=== PATIENT | female | born 1995 | race Hispanic/Latino ===

== ENCOUNTER 2017-07-21 08:19 | Emergency (ER) | payer SELFPAY ==
[2017-07-21 08:47] VITALS: BP 136/84; TEMP 97.6; O2SAT 99
--- NOTE | 2017-07-21 09:07 | RAD ---
EXAM DESCRIPTION: Foot,Right 2 Views CLINICAL HISTORY: 21 years, Female, fall with pain COMPARISON: None TECHNIQUE: AP/lateral of the right foot FINDINGS: There is no bone, joint, or soft tissue abnormality observed. There is no radiopaque foreign body. IMPRESSION: Normal Electronically signed by: Joshua Venegas MD 07/21/2017 9:05 AM [facility]
--- NOTE | 2017-07-21 09:09 | RAD ---
EXAM DESCRIPTION: Tibia/Fibula,Right CLINICAL HISTORY: 21 years Female, fall with pain COMPARISON: None. FINDINGS: Two-view right tib-fib shows no fracture or bone lesion. No soft tissue abnormality. IMPRESSION: Negative Electronically signed by: Joshua Venegas MD 07/21/2017 9:08 AM [facility]
--- NOTE | 2017-07-21 09:54 | ED.PDOC ---
History of Present Illness - General Chief Complaint: Lower Extremity Injury Stated Complaint: ankle pain Time Seen by Provider: 07/21/17 08:30 Source: patient Exam Limitations: no limitations - History of Present Illness Initial Comments: The patient is a 21-year-old female presenting to the emergency room after having tripped and fallen this morning. She has pain and swelling over the right lateral malleolus. She has mild pain towards the mid fibula on the right. She has mild diffuse medial foot pain. She has an abrasion over her left kneecap. It will not require repair. She is neurovascularly intact. No other injuries. No head injury. No neck pain. She simply tripped and fell. Timing/Duration: momentarily Severity: moderate Improving Factors: nothing Worsening Factors: nothing Associated Symptoms: denies symptoms Allergies/Adverse Reactions: Allergies NO KNOWN ALLERGY Allergy (Verified 07/21/17 08:47) Home Medications: Ambulatory Orders [id number]-Ricd-Xxgnbulpzs [Fioricet] 1 ea PO Q8H PRN #21 tab 07/21/17 Review of Systems - Review of Systems Constitutional: States: no symptoms reported EENTM: States: no symptoms reported Respiratory: States: no symptoms reported Cardiology: States: no symptoms reported Gastrointestinal/Abdominal: States: no symptoms reported Genitourinary: States: no symptoms reported Musculoskeletal: States: see HPI Skin: States: see HPI Neurological: States: no symptoms reported Endocrine: States: no symptoms reported All other Systems: No Change from Baseline Past Medical History (General) - Patient Medical History Hx Stroke: No Hx Congestive Heart Failure: No Hx Diabetes: No Surgical History: no surgical history - Vaccination History Hx Influenza Vaccination: No - Social History Hx Tobacco Use: No - Female History Patient is a Female of Child Bearing Age (10 -59 yrs old): Yes Family Medical History - Family History Mother Family History: Unknown Living Status: Unknown Physical Exam - Physical Exam General Appearance: Alert, Comfortable, No apparent distress Eye Exam: bilateral normal Ears, Nose, Throat: hearing grossly normal Neck: full range of motion, supple Respiratory: no respiratory distress, no accessory muscle use Cardiovascular/Chest: normal peripheral pulses, no edema Peripheral Pulses: radial,right: 2+, radial,left: 2+, dorsalis pedis,right: 2+, dorsalis pedis,left: 2+ Rectal Exam: deferred Back Exam: normal inspection Extremity: normal range of motion, no pedal edema, no calf tenderness, normal capillary refill, other - see history of present illness 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 She also has an abrasion over her left knee. The patient was placed in a walking boot for the ankle sprain and she needs to wear this for at least 3 weeks. She needs to be reevaluated by her primary care doctor after that. Antibiotic ointment and a Band-Aid are to be applied over the left knee abrasion. X-rays of the left foot ankle and tib-fib show no evidence of fracture or obvious dislocation. She'll be written for Fioricet for as needed use for additional pain control. Otherwise she can use Motrin 400 mg 3 times a day as long as she is not . ER warnings were given for any significant worsening. Departure - Departure Clinical Impression: Sprain of right ankle or foot Disposition: Discharge to Home or Self Care Condition: Fair Departure Forms: ED Discharge - Pt. Copy, Patient Portal Self Enrollment Instructions: DI for Ankle Sprain Diet: regular diet Activity: increase activity as tolerated Prescriptions: Kqkbvmorgfntb-Ucoy-Fbzmoieoyi [Fioricet] 1 ea PO Q8H PRN #21 tab PRN Reason: Pain Home Medications: Ambulatory Orders Guukdmibznphz-Egfu-Fisrmhljfr [Fioricet] 1 ea PO Q8H PRN #21 tab 07/21/17 Additional Instructions: the patient is a 21-year-old female presenting to the emergency room with a right lateral ankle sprain. She also has an abrasion over her left knee. The patient was placed in a walking boot for the ankle sprain and she needs to wear this for at least 3 weeks. She needs to be reevaluated by her primary care doctor after that. Antibiotic ointment and a Band-Aid are to be applied over the left knee abrasion. X-rays of the left foot ankle and tib-fib show no evidence of fracture or obvious dislocation. She'll be written for Fioricet for as needed use for additional pain control. Otherwise she can use Motrin 400 mg 3 times a day as long as she is not . ER warnings were given for any significant worsening.
[2017-07-21] MEDS ORDERED: NEOMYCIN-BACITRACIN-POLYMYXIN 0.9 GM UD TOP ONE (10:01)
== END 2017-07-21 10:10 | disposition home or self-care (01) ==
LOC: ER 08:19
DX: S93.401A Sprain of unspecified ligament of right ankle, initial encounter (principal); S80.212A Abrasion, left knee, initial encounter; W01.0XXA Fall on same level from slipping, tripping and stumbling without subsequent striking against object, initial encounter; Y92.9 Unspecified place or not applicable